=== PATIENT | male | born 1965 | race African-American/Black ===

== ENCOUNTER 2016-06-26 17:09 | Inpatient (IN) ==
[2016-06-26] MEDS ORDERED: NITROGLYCERIN 2% OINT 1 INCH/GM PACK TOP STA (18:52)
[2016-06-26] MEDS ORDERED: ENOXAPARIN 100 MG/ML SYRINGE SUBCUT STA (18:52)
[2016-06-26] MEDS ORDERED: ASPIRIN 325 MG TABLET PO STA (18:52)
[2016-06-26 19:03] LABS: Basophils # 0.1 10*3/uL (0.0-0.2); Basophils % 0.9 % (0.0-0.8); Eosinophils # 0.2 10*3/uL (0.0-0.87); Eosinophils % 1.3 % (0.00-10.9); Hematocrit 42.2 VOL% (42.0-52.0); Hemoglobin 14.2 GM/DL (14.0-18.0); Immature Granulocytes % 0.4 %; Immature Granulocytes Absolute 0.04 #; Lymphocytes # 4.5 10*3/uL (1.4-4.0); Lymphocytes % 39.4 % (21.2-54.2); Mean Corpuscular HGB Conc 33.6 GM/DL (32-36); Mean Corpuscular Hemoglobin 30 PG (27-34); Mean Corpuscular Volume 89.4 FL (87-102); Monocytes # 0.7 10*3/uL (0.11-0.8); Monocytes % 6.2 % (1.7-12.7); Neutrophils # 5.9 10*3/uL (1.4-7.4); Neutrophils % 51.8 % (38.7-73.9); Platelet Count 205 T/CUMM (130-400); Red Blood Count 4.72 MC/CUMM (3.8-5.5); Red Cell Distribution Width 12.5 % (9.3-17.3); White Blood Count 11.4 T/CUMM (4-12)
--- NOTE | 2016-06-26 19:05 | XRay Report ---
Portable chest Date: 06/26/2016 Clinical history: Chest pain Comparison: 02/17/2008 Technique: Portable AP sitting chest Findings: The heart is normal in size. The lungs are clear. Unremarkable mediastinum. Minimal degenerative changes. Impression: No acute cardiopulmonary pathology identified. PROCEDURE INTERPRETED AT [facility] DEPARTMENT OF RADIOLOGY Final Report Signed by: Dr. Yelena Ch
[2016-06-26] MEDS ORDERED: ASPIRIN 325 MG TABLET ONE (19:12)
[2016-06-26] MEDS ORDERED: NITROGLYCERIN 2% OINT 1 INCH/GM PACK TOP ONE (19:12)
[2016-06-26] MEDS ORDERED: ENOXAPARIN 120 MG/0.8 ML SYRINGE SUBCUT ONE (19:12)
[2016-06-26 19:14] LABS: PT Patient Result 10.6 SECS; Partial Thromboplastin Time 23.8 SECS (0-40)
[2016-06-26 19:31] LABS: Alanine Aminotransferase 37 U/L (16-61); Albumin 3.9 G/DL (3.4-5.0); Alkaline Phosphatase 95 U/L (45-117); Aspartate Amino Transferase 22 U/L (0-37); Bilirubin,Total < 0.39 MG/DL (0.2-1.0); Blood Urea Nitrogen 19 MG/DL (7-18); Calcium 8.9 MG/DL (8.5-10.1); Glucose 124 MG/DL (74-106); Magnesium 2.3 MG/DL (1.8-2.4); Osmolality,Calculated 285.1 MOS/KG (273-304); Potassium 3.8 MMOL/L (3.5-5.1); Sodium 142 MMOL/L (136-145); Total Protein 7.2 G/DL (6.4-8.3)
[2016-06-26] MEDS ORDERED: CLORAZEPATE 3.75 MG TABLET PO PRN (21:57)
--- NOTE | 2016-06-26 22:03 | Hospitalist History & Physical ---
Assessment and Plan (1) Chest pain Status: Acute Assessment and plan: This patient's chest pain have increased in frequency and starting and provoked. Because of these I am concerned that this is more likely crescendo angina from coronary ischemia. Patient should be seen by cardiology while here. He is going to be admitted to the CCU. He has had a dose of Lovenox 110 mg subcu daily. In this context I prefer unfractionated heparin just on outside chance our cardiology colleagues would need to do catheterization fast. In this case heparin should be withheld until tomorrow morning 12 hours after the first dose of Lovenox. PT/ PTT on discharge. Continue antiplatelet treatment that he was getting at home medications have been resumed. Current Visit: Yes (2) Bradycardia Status: Acute Assessment and plan: This could be secondary to ischemia could also be secondary to medications. She should be observed closely on telemetry. She is going to CCU Chart has been reviewed in total. Prior encounters also been looked at. Patient will be seen by cardiology in the morning. Time for patient assessment chart review and decision-making was 45 minutes. This patient is being admitted to Dr. Smalls Current Visit: Yes History of Present Illness Chief complaint: Recurrent chest pains over the past 24 hrs radiation to the left shoulder. History of present illness: Mr. Hayes is a 51 year old male with known history of coronary artery disease and history of myocardial infarction in the last 2 years. Patient reports that since last night started having recurrent chest pain pressure with radiation to the left shoulder and left upper arm. He has had 4 events since last night. Patient is well-known to the cardiology services of these hospital. Whenever the chest pains hit him his short winded. Also has developed exercise intolerance of late. Gentleman has 4 stents already. This is obviously a crescendo his chest pain character. Home Medications Medication Instructions Recorded Confirmed Type Allopurinol 100 mg PO DAILY 06/26/16 06/26/16 History Aspirin [Aspirin EC] 81 mg PO DAILY 06/26/16 06/26/16 History Atorvastatin [Lipitor] 40 mg PO DAILY 06/26/16 06/26/16 History Clorazepate Dipotassium 3.75 mg PO TID PRN 06/26/16 06/26/16 History Losartan Potassium 100 mg PO DAILY 06/26/16 06/26/16 History Metoprolol Tartrate Tab [Lopressor 25 mg PO TID 06/26/16 06/26/16 History Tab] Ticagrelor [Brilinta] 90 mg PO BID 06/26/16 06/26/16 History Allergies Allergy/AdvReac Type Severity Reaction Status Date / Time No Known Allergies Allergy Unverified 07/10/14 10:47 Medical,Surgical,& Family Hx - Medical History Cardio: History of: Hypertension, [place], Cardiovascular Problems (stents in august 2014) Psychological: History of: Anxiety Disorders Endocrine: History of: Dyslipidemia - Social History Smoking Status: Never smoker - Constitutional Constitutional: Present: as per HPI - EENT Eyes: Present: other (Unremarkable) Ears: Present: other (No symptoms and signs) - Cardiovascular Cardiovascular: Present: chest pain at rest, dyspnea on exertion, other ( Dyspnea with chest pain) - Respiratory Respiratory: Present: other (Shortness of breath with exertion) - Gastrointestinal Gastrointestinal: Present: other (No symptoms or sign) - Genitourinary Genitourinary: Present: other (No symptoms and signs) - Musculoskeletal Musculoskeletal: Present: other (No symptoms and signs) - Neurological Neurological: Present: other (No symptoms and signs) - Endocrine Endocrine: Present: other Exam - Constitutional Vitals: Period Temp Pulse Resp BP Sys/Ivy Pulse Ox Last 24 Hr 98.1 F-98.1 F 54-59 18-18 171-184/81-101 97-99 General appearance: over weight - Head Head exam: Present: normocephalic, atraumatic - Eye Eye exam: Present: EOMI Pupils: Present: JULIO - ENT ENT exam: Present: normal oropharynx - Neck Neck exam: Present: normal inspection - Respiratory Respiratory exam: Present: clear to auscultation bilaterally, other (No rales no wheezing) - Cardiovascular Cardiovascular exam: Present: bradycardia, other (Sinus control) - GI/Abdominal GI/Abdominal exam: Present: normal bowel sounds, soft, other (No guarding no rebound tenderness) - Extremities Exam Extremities exam: Present: normal inspection, full ROM, other (No edema no cyanosis) - Back Exam Back exam: Present: normal inspection - Neurological Exam Neurological exam: Present: alert, oriented X3, CN II-XII intact - Psychiatric Psychiatric exam: Present: normal affect, normal mood - Skin Skin exam: Present: normal color, warm, dry Results - Labs CBC & BMP: 06/26/16 18:40 06/26/16 18:40 Lab Results: I have reviewed the past 24 hour labs (His troponin was less than 0.015. Troponins will be drawn. Patient did receive Lovenox full dose in the emergency room PT PTT are within normal limits)
[2016-06-26 23:32] LABS: Risk Ratio 5.45; VLDL CHOLESTEROL 108.4 MG/DL
[2016-06-26] MEDS ORDERED: LOSARTAN 50 MG TABLET PO ONE (23:38)
[2016-06-26 23:39] LABS: Troponin I Only < 0.015 NG/ML (0.00-0.045)
[2016-06-26] MEDS: NITROGLYCERIN 2% OINT 1 INCH/GM PACK TOP SCH (23:47)
[2016-06-26 23:48] LABS: Apearance,Urine CLEAR (Clear); Bilirubin,Urine Negative (Negative); Blood, Urine Negative (Negative); Glucose,Urine (UA) Negative (Negative); Ketones,Urine Negative (Negative); Mucus,Urine Occasional /LPF (Occasional); Nitrite,Urine Negative (Negative); Protein,Urine Negative; RBC,Urine 3 /HPF (0-4); Squamous Epithelial Cell,Urine Occasional /HPF (0-10); Urine Color Yellow (Yellow); WBC,Urine <1 /HPF (0-6)
[2016-06-26] MEDS: hydrALAZINE 20 MG/1 ML VIAL IV PRN (23:52)
--- NOTE | 2016-06-26 23:52 | Emergency Department Note ---
Willy Bales Brittany, am scribing for, and in the presence of, Aj Hardy MD 18:58. Hayley Bales William S., MD, personally performed the services described in this documentation, ascribed by Jane Aguilera in my presence, and it is both accurate and complete [id number] . Arrival - Arrival Chief Complaint: Chest Pain Stated Complaint: CHEST PAIN ARM PAIN DIZZY ED Nursing Triage Note: chest tightness radiating down left arm with dizziness that started yesterday. Mode of Arrival: Ambulatory Limitations: No Limitations Source: Patient, Family (rday) Time Seen by Provider: 06/26/16 18:27 - History of Present Illness HPI Narrative: This is a 51 y/o black male,who presents to the ED for further evaulation of CP which started last night. He reports he had 3-4 episodes of chest pain last night. He states the chest pain was a dull type of pain and did not radiate. He reports the chest pain went away on its own. Pt states the chest pain then started again this morning. He reports he is SOB with the chest pain. He reports the SOB is worse with exertion. Pt also reports dizziness. Pt has no other complaints/pain in the ED at this time. Pt has a PMHx of HTN, DE, and dyslipidemia. Pt has had a cardiac cath with 4 stents. Pt has a family medical Hx of HTN and heart disease. Pt is a former smoker. Onset (ago): day(s) (S) Consistency: constant Severity: moderate Allergies/Adverse Reactions: Allergies Allergy/AdvReac Type Severity Reaction Status Date / Time No Known Allergies Allergy Unverified 07/10/14 10:47 Home Medications: Home Medications Medication Instructions Recorded Confirmed Type Allopurinol 100 mg PO DAILY 06/26/16 06/26/16 History Aspirin [Aspirin EC] 81 mg PO DAILY 06/26/16 06/26/16 History Atorvastatin [Lipitor] 40 mg PO DAILY 06/26/16 06/26/16 History Clorazepate Dipotassium 3.75 mg PO TID PRN 06/26/16 06/26/16 History Losartan Potassium 100 mg PO DAILY 06/26/16 06/26/16 History Metoprolol Tartrate Tab [Lopressor 25 mg PO TID 06/26/16 06/26/16 History Tab] Ticagrelor [Brilinta] 90 mg PO BID 06/26/16 06/26/16 History Review of System - Review of System 12 point system: reviewed and no additional remarkable complaints except as stated - Review of System Cardiovascular: Present: chest pain, dyspnea on exertion, other (Dyspnea) Gastrointestinal: Absent: abdominal pain Neurological: Present: vertigo (Dizziness) Medical,Surgical,& Family Hx - Medical History Cardio: History of: Hypertension, DE, Cardiovascular Problems (stents in august 2014) Psychological: History of: Anxiety Disorders Endocrine: History of: Dyslipidemia - Surgical History Cardiac Surgeries: Sugical HX of: Cardiac Catheterization (with 4 stents) - Family History Family History: Reports;: Family Diabetes, Family Heart Disease - Social History Smoking Status: Former smoker Exam Vital Signs: Vital Signs Temperature 98.6 F 06/26/16 23:10 Pulse Rate 50 L 06/26/16 23:50 Respiratory Rate 20 06/26/16 23:50 Blood Pressure 150/75 06/26/16 23:50 O2 Sat by Pulse Oximetry 97 06/26/16 23:50 - General General appearance: alert, in no apparent distress, obese (Slightly overweight) - Head Head exam: Present: atraumatic, normocephalic, normal inspection - Eye Eye exam: Present: normal appearance, PERRL, EOMI. Absent: nystagmus, miosis, mydriasis - ENT ENT exam: Present: normal exam, normal oropharynx, mucous membranes moist - Neck Neck exam: Present: normal inspection, full ROM, trachea midline. Absent: tenderness, lymphadenopathy, thyromegaly - Chest Chest inspection: Present: normal inspection, symmetric chest wall rise. Absent : tenderness, rash, abscess - Respiratory Respiratory exam: Present: normal lung sounds bilaterally. Absent: rales, respiratory distress, rhonchi, stridor, wheezes - Cardiovascular Cardiovascular exam: Present: regular rate, normal rhythm, normal heart sounds. Absent: murmur, rubs, gallop, clicks - Abdominal Exam Abdominal exam: Present: soft, normal bowel sounds. Absent: distention, tenderness, guarding, rebound, rigidity - Rectal Exam Rectal exam: Present: deferred - Extremities Exam Extremities exam: Present: normal inspection, full ROM, normal capillary refill. Absent: tenderness, pedal edema, joint swelling, calf tenderness - Back Exam Back exam: Present: normal inspection, full ROM. Absent: tenderness, muscle spasm, rashes - Neurological Exam Neurological exam: Present: alert, oriented X3, CN II-XII intact. Absent: motor sensory deficit - Psychiatric Psychiatric exam: Present: normal affect, normal mood. Absent: depressed, agitated, anxious, manic - Skin Skin exam: Present: warm, dry, intact, normal color. Absent: rash, cyanosis, diaphoresis, erythema, pallor, mottled Course - Reevaluation(s) Reevaluation #1: Patient remains pain-free at this time. Given patient's prior event with silent DE in the patient's symptoms that he presents today the patient will be admitted for rule out myocardial infarction with appropriate stress testing as per his primary care doctor's evaluation. Patient's labs are negative this time EKG shows normal sinus rhythm his chest x-ray is unremarkable. Patient is admitted to the telemetry service. Results - Labs CBC & BMP: 06/26/16 18:40 06/26/16 18:40 - Diagnostic Findings Procedure: Chest x-ray: report reviewed by me (Nothing acute. ) Disposition Clinical Impression: Unstable angina pectoris Case discussed with: patient, patient's family Disposition: Still a Patient Condition: Stable
[2016-06-27 05:52] LABS: Risk Ratio 5.63; VLDL CHOLESTEROL 46.8 MG/DL
[2016-06-27] MEDS: NITROGLYCERIN 2% OINT 1 INCH/GM PACK TOP SCH ×3 (06:09→18:06)
--- NOTE | 2016-06-27 06:39 | EKG Report ---
Stationary ECG Study [facility] ER Test Date: 06/26/2016 5:33:11 PM Pat Name: ALLEN ALLISON Department: Room: 114 Gender: M Staffing Director: : 1965 Requested by: Aj Palacio Order Number: [id number] Nadira MD: DEBRA GONZALEZ Intervals [place] Rate: 55 P: 64 [place]: 179 QRS: 35 QRSD: 83 T: 65 QT: 419 QTc: 407 Interpretive Statements SINUS BRADYCARDIA SEPTAL INFARCT, AGE UNDETERMINED Electronically Signed On 06-29-16 12:34:19 CDT by DEBRA GONZALEZ [email or web address]
--- NOTE | 2016-06-27 07:32 | EKG Report ---
Stationary ECG Study [facility] Test Date: 06/27/2016 7:31:44 AM Pat Name: ALLEN ALLISON Department: Room: 114 Gender: M Health Specialist: THAD : 1965 Requested by: Brody De La Paz Order Number: [id number] Reading MD: DEBRA GONZALEZ Intervals [place] Rate: 56 P: 50 [place]: 155 QRS: 53 QRSD: 89 T: 4 QT: 464 QTc: 455 Interpretive Statements SINUS RHYTHM SEPTAL MYOCARDIAL INFARCTION, OF INDETERMINATE AGE Electronically Signed On 06-29-16 12:40:12 CDT by DEBRA GONZALEZ [email or web address]
--- NOTE | 2016-06-27 08:50 | Cardiology Consult Note ---
<Delilah Baker E - Last Filed: 06/27/16 08:39> Assessment and Plan - Time spent with patient Time spent with patient: Greater than 30 minutes (1) Dizziness Status: Acute Assessment and plan: See plan of care listed below Current Visit: Yes (2) CAD (coronary artery disease) Status: Chronic Assessment and plan: See plan of care listed below Current Visit: Yes (3) Hypertension Status: Chronic Assessment and plan: See plan of care listed below Current Visit: Yes (4) Dyslipidemia Status: Chronic Assessment and plan: See plan of care listed below Current Visit: Yes (5) Left carotid bruit Status: Acute Assessment and plan: See plan of care listed below Current Visit: Yes (6) Bradycardia Status: Acute Assessment and plan: See plan of care listed below Current Visit: Yes (7) Chest pain Status: Resolved Assessment and plan: See plan of care listed below Current Visit: Yes History of Present Illness - Data of Consult Patient: known to practice within the last 3 years Consult date: 06/27/16 Requesting Physician: Brody De La Paz - Consult Narrative Reason for consult: chest pain, dizziness History of present illness: 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 AMOR PCP: Patient is being seen in the CCU. Mr. Hayes is a 51 year old male routinely followed by Dr. moses. He was last seen in cardiology clinic April 06, 2016. He has a history of known coronary artery disease (status post non-Q-wave inferior infarction August 2014 requiring 4 stents placed to the right coronary artery [facility]. At that time the LAD and circumflex had mild diffuse disease with an occluded small first diagonal branch and an ejection fraction 45%. History of hypertension, dyslipidemia, tobaccoism. Patient presented to the emergency department at [facility] last evening after experiencing dizziness. Monday morning, while in episcopal, he began to feel "swimmy headed". This lasted only a brief moment. Monday evening, he began to feel this again. At that point he remembered he had chest discomfort in the mid chest area on Monday which lasted approximately 3 seconds. He described it as a squeezing sensation without radiation, nausea or vomiting. He was sitting when this occurred. He can identify no aggravating nor any alleviating factors. It has not reoccurred and does not recur with exertion or activity. Later that evening he had left shoulder pain with movement, described as painful. He has been stuffy through the sinus area and finds it difficult to breathe through his nose recently. Patient's , Charlotte, is present and gives additional information. It is reported he had a stress test in December 2015 from which she received favorable results. I cannot locate this test at this time Patient's cardiac biomarkers are negative. His EKG is unremarkable. His heart rate is noted to be in the low 50s which could be contributing to his dizziness or lightheadedness. He is on metoprolol tartrate 25 mg p.o. 3 times daily. Will transition this to twice daily dosing and monitor his blood pressure and heart rate accordingly. We discussed with Dr. Kasper this morning. Conceivably, patient could be scheduled for an outpatient stress test at cardiovascular [facility]. Will defer to Dr. Kasper for further recommendations. At this time, I will decrease his beta-blockade to twice daily dosing. ASSESSMENT/PLAN: 1. CHEST PAIN -atypical for angina. Will await Dr. Kasper recommendations. Verify that he is taking PPI. 2. KNOWN CAD -taking Brilinta. I will decrease his aspirin to 81 mg daily 3. HYPERTENSION -adequately controlled. Adjusting beta-blockade to lower dose. There is a question of history of angioedema per an old record. He has been taking losartan at home without difficulty. 4. DYSLIPIDEMIA -increase Lipitor as his LDL is 114. 5. DIZZINESS -dizziness could conceivably be related to lower heart rates. We will decrease his beta blockade and monitor accordingly 6. REMOTE TOBACCOISM -has not smoked in quite some time. Reinforced the merits of tobacco 7. LEFT CAROTID BRUIT - carotid us CC: Raina Smalls MD - Home Medications and Allergies Home Medications: Home Medications Medication Instructions Recorded Confirmed Type Allopurinol 100 mg PO DAILY 06/26/16 06/26/16 History Aspirin [Aspirin EC] 81 mg PO DAILY 06/26/16 06/26/16 History Atorvastatin [Lipitor] 40 mg PO DAILY 06/26/16 06/26/16 History Clorazepate Dipotassium 3.75 mg PO TID PRN 06/26/16 06/26/16 History Losartan Potassium 100 mg PO DAILY 06/26/16 06/26/16 History Metoprolol Tartrate Tab [Lopressor 25 mg PO TID 06/26/16 06/26/16 History Tab] Ticagrelor [Brilinta] 90 mg PO BID 06/26/16 06/26/16 History Allergies/Adverse Reactions: Allergies Allergy/AdvReac Type Severity Reaction Status Date / Time No Known Allergies Allergy Unverified 07/10/14 10:47 Review of systems: REVIEW OF SYSTEMS: - Constitutional Constitutional: Dizziness yesterday. Denies absent: syncope, anorexia, night sweats - EENT Eyes: Absent: blurry vision, loss of vision, diplopia Ears: Absent: decreased hearing, ear pain, ear discharge - Cardiovascular Cardiovascular: Present: chest pain brief, at rest. Denies chest pain with exertion. Denies dyspnea on exertion but does have difficulty moving air through his nose. - Respiratory Respiratory: Denies BLACKMAN, cough. Absent: wheezing, hemoptysis, change in phlegm color - Gastrointestinal Gastrointestinal: Denies constipation. Absent: abdominal pain, hematemesis, hematochezia, melena, change in bowel habits, nausea - Genitourinary Genitourinary: Absent: difficulty urinating, dysuria, urinary hesitancy, flank pain - Musculoskeletal Musculoskeletal: Present: back pain Absent: joint swelling, muscle cramps, muscle weakness - Neurological Neurological: Present: normal gait without frequent falls. Absent: dizziness, hemiparesis - Psychiatric Psychiatric: Absent: anxiety, depression, difficulty concentrating - Endocrine Endocrine: Denies absent: cold intolerance, heat intolerance, polyuria, polyphagia, polydipsia - Hematologic/Lymphatic Hematologic/Lymphatic: Present: easy bruising. Absent: easy bleeding, easy bruisability -Integumentary Integumentary: Absent: lesions, rashes, skin breakdown Medical,Surgical,& Family Hx - Medical History Cardio: History of: CAD, Hypertension, LA, Cardiovascular Problems (stents in august 2014) Psychological: History of: Anxiety Disorders Endocrine: History of: Dyslipidemia - Surgical History Cardiac Surgeries: Sugical HX of: Cardiac Catheterization (with 4 stents) - Family History Family History: Reports;: Family Diabetes, Family Heart Disease - Social History Smoking Status: Former smoker Have you smoked in the last 12 months: No Frequency of Alcohol Use: None Type of Drug Use: None Marital Status: Lives With:: Alone Functional capacity: independent ambulation Physical Examination Vital Signs Temp Pulse Resp BP Pulse Ox 98.1 F 59 L 18 171/81 97 06/26/16 17:30 04/16/17 17:30 06/26/16 17:30 06/26/16 17:30 06/26/16 17:30 General: [Appears well with no apparent distress.] [Pleasant and cooperative. ] [Appears comfortable.] HEENT: [PERRL, normocephalic, atraumatic. Mucous membranes moist. No jaundice noted. Conjunctiva moist and clear, sclerae anicteric] Neck: No JVD/HJR, no thyromegaly or lymphadenopathy noted. Right carotid bruit Cardiac: [Regular rate and rhythm.] [Soft II/ holosystolic murmur heard best at fifth intercostal space to the left. ] Lungs: [Clear to auscultation without accessory muscle use to assist the respiratory pattern.] Not requiring oxygen Abdomen: Soft, bowel sounds normoactive. Nontender and nondistended. No abdominal bruit or thrill noted. No masses noted. Musculoskeletal: No fluid collection. Decreased range of motion is noted. Extremities: No clubbing, cyanosis noted. [ No edema noted.] Upper extremity pulses 2+. Lower extremity pulses 2+. Capillary refill less than 3 seconds. Skin: No unusual lesions or rashes. No skin breakdown appreciated. Neuro: Awake, alert and oriented 3. Moves all extremities well without hemiparesis or paralysis. No essential tremor is appreciated. Result/EKG - Labs CBC & BMP: 06/26/16 18:40 06/26/16 18:40 Lab Results: I have reviewed the past 24 hour labs Labs: Laboratory Results - last 24 hr 06/26/16 06/26/16 06/26/16 22:50 22:50 23:31 Total Creatine Kinase 330 H CK-MB (CK-2) 2.1 Troponin I < 0.015 Triglycerides 542 H Cholesterol 158 LDL Cholesterol 104.0 VLDL Cholesterol 108.4 HDL Cholesterol 29 L Heart Disease Risk Ratio 5.45 Urine Color Yellow Urine Appearance Clear Urine pH 5.0 Ur Specific [place] 1.030 Urine Protein Negative Urine Glucose (UA) Negative Urine Ketones Negative Urine Blood Negative Urine Nitrate Negative Urine Bilirubin Negative Urine Urobilinogen 4.0 H Urine Leukocytes Negative Urine RBC 3 Urine WBC <1 Ur Squamous Epith Cells Occasional Urine Mucus Occasional Ur Culture Indicated? Not indicated 06/27/16 04:52 Total Creatine Kinase CK-MB (CK-2) Troponin I Triglycerides 234 H Cholesterol 180 LDL Cholesterol 114.0 VLDL Cholesterol 46.8 HDL Cholesterol 32 L Heart Disease Risk Ratio 5.63 Urine Color Urine Appearance Urine pH Ur Specific [place] Urine Protein Urine Glucose (UA) Urine Ketones Urine Blood Urine Nitrate Urine Bilirubin Urine Urobilinogen Urine Leukocytes Urine RBC Urine WBC Ur Squamous Epith Cells Urine Mucus Ur Culture Indicated? - Diagnostic Findings Procedure: Chest x-ray: report reviewed by me - EKG EKG results: interpreted by me EKG shows: bradycardia, sinus rhythm <Rafael Kasper Larry - Last Filed: 06/27/16 09:11> History of Present Illness - Consult Narrative History of present illness: Mr. Hayes is a 51 year old male he's had prior coronary disease and stenting of the RCA approximately 2 years ago i.e. August 2014. I reviewed this patient's chart and person interviewed him and anterior examination. Have discussed this with Delilah Baker NP. Because of this patient's prior issues having very atypical presentation with a non-ST segment elevation myocardial she previously in the fact of he's having left arm discomfort and chest discomfort and even bradycardia could indicate progressive disease with coronary arteries especially his RCA. Certainly his bradycardia could be associated with beta tolu and his heart rates are in the 50s. His cardiac enzymes unremarkable. His ECG is without acute changes but does have an old septal myocardial infarction. Because of his history and prior atypical presentation with non-ST 7 elevation myocardial infarction I think he should have cardiac catheterization to clear his coronary arteries especially as active as he is. I'll discuss this procedure with the patient the medication procedure Belle be carried out as well as the risk. I discussed cardiac catheterization and percutaneous coronary intervention with the patient and available family. I reviewed with them the indications for the procedure and the basis of how the procedure would be carried out. I also reviewed with them the risk of the procedure which include but not necessarily limited to access site bleeding, bruising, pain, swelling or vascular injury that may require emergency vascular surgery, blood transfusion, or thrombin injection. Also discussed the possibility of stroke, myocardial infarction, arrhythmia which may require electrocardioversion, and the possibility of dye reaction that would require medical therapy. Also discussed the possibility of coronary artery injury, ruptured, closure or perforation that may require emergency bypass surgery. We also discussed the possibility of from a major complication. They voice understanding and agree to proceed. I will discuss his case with Dr. Fletcher. CC: Raina Smalls MD Physical Examination Vital Signs Temp Pulse Resp BP Pulse Ox 98.1 F 59 L 18 171/81 97 06/26/16 17:30 06/26/16 17:30 06/26/16 17:30 06/26/16 17:30 06/26/16 17:30 Result/EKG - Labs CBC & BMP: 06/26/16 18:40 06/26/16 18:40 Labs: Laboratory Results - last 24 hr 06/26/16 06/26/16 06/26/16 22:50 22:50 23:31 Total Creatine Kinase 330 H CK-MB (CK-2) 2.1 Troponin I < 0.015 Triglycerides 542 H Cholesterol 158 LDL Cholesterol 104.0 VLDL Cholesterol 108.4 HDL Cholesterol 29 L Heart Disease Risk Ratio 5.45 Urine Color Yellow Urine Appearance Clear Urine pH 5.0 Ur Specific [place] 1.030 Urine Protein Negative Urine Glucose (UA) Negative Urine Ketones Negative Urine Blood Negative Urine Nitrate Negative Urine Bilirubin Negative Urine Urobilinogen 4.0 H Urine Leukocytes Negative Urine RBC 3 Urine WBC <1 Ur Squamous Epith Cells Occasional Urine Mucus Occasional Ur Culture Indicated? Not indicated 06/27/16 04:52 Total Creatine Kinase CK-MB (CK-2) Troponin I Triglycerides 234 H Cholesterol 180 LDL Cholesterol 114.0 VLDL Cholesterol 46.8 HDL Cholesterol 32 L Heart Disease Risk Ratio 5.63 Urine Color Urine Appearance Urine pH Ur Specific [place] Urine Protein Urine Glucose (UA) Urine Ketones Urine Blood Urine Nitrate Urine Bilirubin Urine Urobilinogen Urine Leukocytes Urine RBC Urine WBC Ur Squamous Epith Cells Urine Mucus Ur Culture Indicated?
[2016-06-27] MEDS ORDERED: METOPROLOL TARTRATE 25 MG TABLET PO SCH (09:00)
[2016-06-27] MEDS ORDERED: ATORVASTATIN 40 MG TABLET PO SCH ×2 (09:00→21:00)
[2016-06-27] MEDS ORDERED: ASPIRIN EC 325 MG TABLET PO SCH (09:00)
[2016-06-27] MEDS ORDERED: diphenhydrAMINE CAP 25 MG CAPSULE PO ONE (09:12)
[2016-06-27] MEDS ORDERED: MAGNESIUM SULF RIDER 2 GM in PREMIX 1 EACH IV PRN (09:12)
[2016-06-27] MEDS ORDERED: POTASSIUM CHLORIDE RIDER 10 MEQ in PREMIX 1 EACH IV PRN (09:12)
[2016-06-27] MEDS ORDERED: DIAZEPAM 5 MG TABLET PO ONE (09:12)
[2016-06-27] MEDS: SODIUM CHLORIDE 0.9% 1,000 ML IV SCH ×2 (10:00→16:45)
[2016-06-27] MEDS: TICAGRELOR 90 MG TABLET PO SCH ×2 (10:02→21:17)
[2016-06-27] MEDS: PANTOPRAZOLE 20 MG TABLET PO SCH (10:02)
[2016-06-27] MEDS: LOSARTAN 50 MG TABLET PO SCH (10:02)
[2016-06-27] MEDS: ASPIRIN EC 81 MG TABLET PO SCH (10:02)
[2016-06-27] MEDS: ALLOPURINOL 100 MG TABLET PO SCH (10:07)
--- NOTE | 2016-06-27 11:47 | Ultrasound Report ---
Carotid artery ultrasound Indication: Left-sided carotid bruit Comparison: None available Color Doppler flow and spectral analysis was performed. Findings: Small amount of atherosclerotic plaque is present in both proximal internal carotid arteries. The peak systolic velocity in the right is 59 cm/s . Ratio of flow is 0.6. The peak systolic velocity in the left is 83 cm/s . Ratio of flow is 0.49 Bilateral antegrade vertebral flow is seen. Impression: No evidence of hemodynamically significant stenosis is seen, 0-49% estimated stenosis. Consensus conference on the carotid ultrasound criteria used. Ultrasound images were captured and stored. PROCEDURE INTERPRETED AT [facility] DEPARTMENT OF RADIOLOGY Final Report Signed by: Dr. Ole Martinez
[2016-06-27] MEDS ORDERED: LIDOCAINE 1% 20 ML VIAL ONE (11:59)
[2016-06-27] MEDS ORDERED: HYDROmorphone 2 MG/1 ML VIAL ONE (12:13)
[2016-06-27] MEDS ORDERED: MIDAZOLAM 2 MG/2 ML VIAL ONE (12:13)
--- NOTE | 2016-06-27 12:18 | Hospitalist Progress Note ---
Assessment and Plan (1) Unstable angina pectoris Status: Acute Assessment and plan: 1) USA- to heart cath today. 2)HTN, hypercholesterolemia- continue meds. 3)bradycardia- cards to adjust betablocker. 4)transfer to floor after cath if appropriate. Current Visit: Yes (2) Bradycardia Status: Acute Current Visit: Yes (3) CAD (coronary artery disease) Status: Chronic Current Visit: Yes (4) Hypertension Status: Chronic Current Visit: Yes (5) Dyslipidemia Status: Chronic Current Visit: Yes (6) Left carotid bruit Status: Acute Current Visit: Yes Hospitalist: Subjective Interval history: Mr Hayes feeling good this morning.He has not had chest painsince admission. His troponins are WNL. He had 4 stents placed 2 years ago and thinks his last stress test was in December [address] Denney and did not lead to further workup. Cardiology will see him today. His heart rate has been in the 50s. Exam - Constitutional Vitals: Period Temp Pulse Resp BP Sys/Ivy Pulse Ox Last 24 Hr 98.0 F-98.8 F 48-73 13-20 112-198/51-84 97-100 General appearance: normal weight, no acute distress - Head Head exam: Present: normocephalic, atraumatic - Eye Eye exam: Present: EOMI. Absent: scleral icterus - Respiratory Respiratory exam: Present: clear to auscultation bilaterally - Cardiovascular Cardiovascular exam: Present: regular rate and rhythm, other (chest not tender to palpation) - GI/Abdominal GI/Abdominal exam: Present: normal bowel sounds, soft. Absent: tenderness - Extremities Exam Extremities exam: Absent: edema - Neurological Exam Neurological exam: Present: alert, oriented X3 - Skin Skin exam: Present: warm, dry Results - Labs CBC & BMP: 06/26/16 18:40 06/26/16 18:40 Lab Results: I have reviewed the past 24 hour labs
[2016-06-27] MEDS ORDERED: ENOXAPARIN 60 MG/0.6 ML SYRINGE ONE (12:54)
[2016-06-27] MEDS ORDERED: NITROGLYCERIN DRIP 50 MG/250 ML BOTTLE IV ONE (13:08)
[2016-06-27] MEDS ORDERED: TICAGRELOR 90 MG TABLET ONE (13:50)
[2016-06-27] MEDS ORDERED: ONDANSETRON 4 MG/2 ML VIAL IV PRN (13:51)
[2016-06-27] MEDS ORDERED: HYDROmorphone 2 MG/1 ML VIAL IV PRN (13:51)
[2016-06-27] MEDS ORDERED: NITROGLYCERIN SL 0.4 MG TABLET SL PRN (13:51)
--- NOTE | 2016-06-27 14:09 | Cardiac Catheterization ---
Date of Procedure:: 06/27/16 Post-op diagnosis: same Procedure: Procedures performed: 1. Left heart catheterization 2. Coronary angiography 3. Left ventriculography 4. Angioplasty and stenting of distal right coronary chronic total occlusion ( different charge then routine coronary stenting) 5. Right femoral arteriotomy closures with Angio-Seal device Brief clinical summary: The patient has history of stenting of his RCA 4 at [place] August 2014. He has recurrent chest pain., Ruled out for [place]. Description of procedure: After obtaining informed consent, the right groin was prepped and draped in the usual sterile fashion. Next a short 6 [place] sheath was placed in the right femoral artery using a modified Seldinger technique, after the patient received IV sedation and local anesthetic. Next a JL4 catheter was advanced over a guidewire under fluoroscopic guidance, and was engaged to the left coronary artery after which angiography was performed in multiple views. This was then removed over a wire, and a JR4 catheter was advanced in similar fashion was engaged the right coronary artery after which angiography was performed in multiple views. Next a bent pigtail catheter was advanced into the left ventricle, where hemodynamic measurements were obtained, left ventriculography was performed. Percutaneous coronary intervention wasn't performed as described below. After the intervention, and it of that she showed was inserted in the right common femoral artery in a vessel suitable for closure. Hemostasis was obtained with Angio-Seal device with no residual bleeding. He was transferred from the dental laboratory assistant in good condition without complication. Percutaneous coronary intervention: The patient was given 0.6 mg per kilogram of intravenous Lovenox prior to procedure. He was artery on Brilinta given this morning was given an additional 90 mg after procedure. He was artery on aspirin. A hockey-stick 1 guiding cath with sideholes was advancing his right coronary artery provided fair support. Next a PT Graphix wire was advanced to the area distal occlusion with some difficulty. He would not cross on first attempt, but with accelerated advancement I was able to cross the occlusion and advanced fairly easily after the point tender the PDA takeoff. I then advanced a 2.0 x 20 balloon across here previous occlusion and dilated at low pressure. Angiogram showed that it was in the true vessel but there was still critical disease after angioplasty was subtotally occluded distally. However I can see the PDA and posterolateral filling by antegrade flow. I tried to advance the balloon again and lost wire position as the guide backed out. The balloon and wire were removed from the body. I then advanced a 1.5 x 12 [id number] balloon with a long [place] wire. With some difficulty arousability advance this eventually into the PDA. I performed multiple inflations in the proximal PDA as well as the distal posterolateral. Flow had been lost temporarily but it reopened after giving multiple nitroglycerin intracoronary injections. The balloon was removed, and a 2.25 x 38 drilling stent was advanced covering the entire distal RCA just proximal to the PDA takeoff. It was deployed at just under nominal pressures at approximately 2.15 mm. There was a good result but there was a subtotal occlusion before the takeoff of the PDA and posterolateral. At that point the posterolateral fill by CHAGO 2 flow, the PDA by CHAGO 3 flow but with critical stenosis. I removed the stent balloon advance the 1.5 balloon into the PDA and performed a high pressure prolonged inflation. I then pulled back. There was an unsatisfactory result. Therefore I removed the balloon and advanced a 2.0 x 12 mini vision stent crossing into the proximal PDA abutting the hold ostial posterior lateral stent. It was dilated to modestly above nominal pressure with the next a result. The balloon was removed and a 2.5 x 25 balloon was advanced in the proximal portion of the stent of the distal RCA there was dilated to rated burst pressure with very good result. The patient on she will without complication. The patient was transferred from the dental laboratory assistant in good condition. Coronary angiography: The left main coronary artery is normally developed and free of disease. The left anterior descending artery is of average caliber and has diffuse mild disease of less than 30% in the proximal midportion, with a discrete 50-60% very distal stenosis. There is a very short "nub" of the previously noted ostial diagonal occlusion was noted. The circumflex gives off a long relatively thin OM1 branch with diffuse 70-80% disease. It is at most 1.50 mm proximal. There is a large OM 2 branch with less than 30% proximal disease. The right coronary artery has patent ostial stent and mid stent, and a posterior lateral stent can be seen filling by [id number] collaterals as is the distal vasculature. The RCA is occluded distally in the [place] circulation, approximate 1-1.5 centimeters past the mid stent. Left ventriculography: Left ventricle is normal to hyperdynamic but there is a discrete area of akinesis at the anterolateral wall. The estimated overall ejection fraction is 65%. Impression: 1. Normal overall LV systolic function with ejection fraction assessment be 65 % with discrete area of anterolateral akinesis home (likely related to old diagonal occlusion) 2. Right dominant system 3. Coronary artery disease as described above including but not limited to: A. Mild less than 30% proximally disease with discrete 50% very distal stenosis B. Diffusely diseased thin, long OM1 branch as detailed above C. Patent proximal and mid RCA stents with distal RCA occlusion and filling of the PDA and posterior lateral by [id number]-[id number] collaterals 4. Status post open and stenting of distal RCA chronic total occlusion with 2.25 x 38 drug-eluting stent (synergy), and follow-up overlap stenting of the distal RCA to proximal PDA with 2.0 x 12 bare metal, mini vision stent with excellent result after post-dilating proximal Synergy stent with 2.5 x 25 balloon. Recommendation discussion: I believe that she did very good result stenting the patient's distal RCA chronic total occlusion. I "jailed" the ostial right posterior lateral where an old stent was noted. This remained opened although there is a tight stenosis here. I suspect this will remain open, we will close in the provided flow through the [id number] collaterals which are noted. He'll continue on baby aspirin Brilinta as previously. Anesthesia: minimal conscious sedation Surgeon / Physician: Matthew Dick General Dentist/Owner: other Estimated blood loss: minimal Specimens: none sent Condition: stable Disposition: floor - Medications / Follow-up
--- NOTE | 2016-06-27 15:56 | EKG Report ---
Stationary ECG Study [facility] Test Date: 06/27/2016 3:56:21 PM Pat Name: ALLEN ALLISON Department: Room: 114 Gender: M Literary Writer: THAD : 1965 Requested by: Matthew Awad Order Number: [id number] Reading MD: SHANNAN LINDO Intervals [place] Rate: 42 P: 60 NE: 165 QRS: 94 QRSD: 94 T: -1 QT: 522 QTc: 462 Interpretive Statements SINUS BRADYCARDIA at 42 BPM Suggests lateral MO of indeterminate age NST; LVO versus ischemia Electronically Signed On 06-30-16 17:46:30 CDT by SHANNAN LINDO [email or web address]
[2016-06-27 15:57] LABS: Troponin I Only 0.023 NG/ML (0.00-0.045)
[2016-06-27] MEDS: ATORVASTATIN 80 MG TABLET PO SCH (21:18)
[2016-06-27] MEDS: METOPROLOL TARTRATE 25 MG TABLET PO SCH (21:18)
[2016-06-27] MEDS: hydrALAZINE 20 MG/1 ML VIAL IV PRN (21:18)
--- NOTE | 2016-06-27 21:20 | ECHO Report ---
Jean Pierre Hayes Exam Date: 06/27/2016 08:59 Referring Physician: Technologist: Alanna Kohler LRCP Age: 51 Ht (in): 76 Wt (lb): 240 Gender: M Exam Location: [facility] Echo Indications: angina, chest pain, bradycardia BP: 127 / 55 HR: 64 Rhythm: Bradycardia Technical Quality: Fair IMPRESSIONS 1. This is a fair quality study. 2. Left ventricle is normal size systolic function ejection fraction 65% without segmental abnormalities. There is mild to moderate concentric left ventricular hypertrophy with grade 2 diastolic dysfunction. 3. Other cardiac chambers are normal size. 4. Valvular structures are grossly normal. MEASUREMENTS (Male / Female) Normal Values 2D ECHO LV Diastolic Diameter PLAX 4.5 cm 4.2 - 5.9 / 3.9 - 5.3 cm LV Systolic Diameter PLAX 3.4 cm LV Fractional Shortening PLAX 25.7 % IVS Diastolic Thickness 1.8 cm 0.6 - 1.0 / 0.6 - 0.9 cm LVPW Diastolic Thickness 1.3 cm 0.6 - 1.0 / 0.6 - 0.9 cm RV Internal Dim ED PLAX 2.5 cm Aortic Root Diameter 2.5 cm LA Systolic Diameter LX 3.7 cm 3.0 - 4.0 / 2.7 - 3.8 cm FINDINGS Left Ventricle Left ventricle is normal size systolic function with ejection fraction 65%. There are no segmental wall motion abnormalities. There is mild to moderate concentric left ventricular hypertrophy. Grade 2 diastolic dysfunction. Right Ventricle Normal right ventricular size and systolic function. Right Atrium Normal right atrial size. Left Atrium Normal left atrial size. Mitral Valve Mitral valve is anatomically normal with trace regurgitation which is physiologically normal. Aortic Valve Aortic valve not well visualized but appeared be grossly tricuspid structure and anatomically functioning normal. Tricuspid Valve Tricuspid valve is not adequately visualized common on. Pulmonic Valve Morphologically normal pulmonic valve. Pericardium No pericardial effusion. Aorta Normal size aortic root and proximal ascending aorta. Rafael Kasper MD (Electronically Signed) Final Date: 27 June 2016 21:19
[2016-06-27] MEDS ORDERED: LOSARTAN 50 MG TABLET PO ONE (23:33)
[2016-06-28 05:16] LABS: Basophils # 0.1 10*3/uL (0.0-0.2); Basophils % 0.7 % (0.0-0.8); Eosinophils # 0.1 10*3/uL (0.0-0.87); Eosinophils % 1.1 % (0.00-10.9); Hematocrit 40.3 VOL% (42.0-52.0); Hemoglobin 13.9 GM/DL (14.0-18.0); Immature Granulocytes % 0.3 %; Immature Granulocytes Absolute 0.03 #; Lymphocytes % 36.6 % (21.2-54.2); Mean Corpuscular HGB Conc 34.5 GM/DL (32-36); Mean Corpuscular Hemoglobin 30 PG (27-34); Mean Platelet Volume 11.7 FL (9.6-12.0); Monocytes # 0.6 10*3/uL (0.11-0.8); Monocytes % 5.9 % (1.7-12.7); Neutrophils % 55.4 % (38.7-73.9); Platelet Count 219 T/CUMM (130-400); Red Blood Count 4.63 MC/CUMM (3.8-5.5); Red Cell Distribution Width 12.8 % (9.3-17.3); White Blood Count 10.8 T/CUMM (4-12)
[2016-06-28 05:59] LABS: Calcium 8.7 MG/DL (8.5-10.1); Magnesium 2.2 MG/DL (1.8-2.4); Osmolality,Calculated 278.4 MOS/KG (273-304)
[2016-06-28 06:06] LABS: Blood Urea Nitrogen 13 MG/DL (7-18); Calcium 8.6 MG/DL (8.5-10.1); Glucose 115 MG/DL (74-106); Osmolality,Calculated 279.4 MOS/KG (273-304); Sodium 140 MMOL/L (136-145)
[2016-06-28 06:07] LABS: Troponin I Only 0.298 NG/ML (0.00-0.045)
--- NOTE | 2016-06-28 07:52 | Hospitalist Progress Note ---
Assessment and Plan (1) Unstable angina pectoris Status: Acute Assessment and plan: 1)CAD- had 2 stents to RCA yesterday and history of 4 stents 2 years ago. on asa and Brillinta per DR Dick. No chest pain. transfer to tele. Increase activity. 2)HTN, hypercholesterolemia- continue meds and add Norvasc 10 mg daily this morning. 3)bradycardia- on beta tolu. Current Visit: Yes (2) Bradycardia Status: Acute Current Visit: Yes (3) CAD (coronary artery disease) Status: Chronic Current Visit: Yes (4) Hypertension Status: Chronic Current Visit: Yes (5) Dyslipidemia Status: Chronic Current Visit: Yes (6) Left carotid bruit Status: Acute Current Visit: Yes Hospitalist: Subjective Interval history: Mr Hayes has felt well since last night. No chest pain since admission. He tolerated the cath with 2 stents well. However, his heart rate has remained in the 50s, and even 40s when he was sleeping last night. He has been on metoprolol 25mg BID (not TID as listed in home meds) at home. Also his SBP has increased to the 170s. Exam - Constitutional Vitals: Period Temp Pulse Resp BP Sys/Ivy Pulse Ox Last 24 Hr 98.0 F-99.8 F 44-78 12-22 137-186/59-95 97-100 General appearance: no acute distress, over weight - Eye Eye exam: Present: EOMI. Absent: scleral icterus - Respiratory Respiratory exam: Present: clear to auscultation bilaterally - Cardiovascular Cardiovascular exam: Present: regular rate and rhythm - GI/Abdominal GI/Abdominal exam: Present: normal bowel sounds, soft. Absent: tenderness - Extremities Exam Extremities exam: Absent: edema - Neurological Exam Neurological exam: Present: alert, oriented X3 - Skin Skin exam: Present: warm, dry Results - Labs CBC & BMP: 06/28/16 05:08 06/28/16 05:08 Lab Results: I have reviewed the past 24 hour labs Specialty Discharge - Follow Up or Referrals
[2016-06-28] MEDS: PANTOPRAZOLE 20 MG TABLET PO SCH (08:01)
[2016-06-28] MEDS: ASPIRIN EC 81 MG TABLET PO SCH (08:02)
[2016-06-28] MEDS: TICAGRELOR 90 MG TABLET PO SCH ×2 (08:02→20:53)
[2016-06-28] MEDS: LOSARTAN 50 MG TABLET PO SCH (08:02)
[2016-06-28] MEDS: ALLOPURINOL 100 MG TABLET PO SCH (08:04)
[2016-06-28] MEDS: amLODIPine 10 MG TABLET PO SCH (08:06)
--- NOTE | 2016-06-28 08:17 | EKG Report ---
Stationary ECG Study [facility] Test Date: 06/28/2016 8:00:16 AM Pat Name: ALLEN ALLISON Department: Room: 114 Gender: M Turner And Former Automatic: THAD : 1965 Requested by: Brody De La Paz Order Number: [id number] Reading MD: SHANNAN LINDO Intervals [place] Rate: 63 P: 58 MA: 172 QRS: 9 QRSD: 78 T: 81 QT: 401 QTc: 409 Interpretive Statements SINUS RHYTHM at 63 BPM ANTEROSEPTAL MYOCARDIAL INFARCTION, OF INDETERMINATE AGE Electronically Signed On 07-01-16 16:46:30 CDT by SHANNAN LINDO [email or web address]
--- NOTE | 2016-06-28 08:30 | Cardiology Progress Note ---
<Delilah Baker E - Last Filed: 06/28/16 08:30> Assessment and Plan - Time spent with patient Time spent with patient: Greater than 30 minutes (1) Dizziness Status: Resolved Assessment and plan: See plan of care listed below Current Visit: Yes (2) CAD (coronary artery disease) Status: Chronic Assessment and plan: See plan of care listed below Current Visit: Yes (3) Hypertension Status: Chronic Assessment and plan: See plan of care listed below Current Visit: Yes (4) Dyslipidemia Status: Chronic Assessment and plan: See plan of care listed below Current Visit: Yes (5) Left carotid bruit Status: Chronic Assessment and plan: See plan of care listed below Current Visit: Yes (6) Bradycardia Status: Acute Assessment and plan: See plan of care listed below Current Visit: Yes (7) Chest pain Status: Resolved Assessment and plan: See plan of care listed below Current Visit: Yes Cardiology - PN: Subj Interval history: ELECTRICIAN FRONT: DR. DENNEY Patient is being seen in the ICU. SUMMARY: Mr. Hayes is a 51 year old male routinely followed by Dr. Denney. He has a history of known coronary artery disease, hypertension, dyslipidemia, remote tobaccoism. Patient presented to the emergency department at [facility] June 26, 2016 with complaints of dizziness, chest discomfort and left shoulder pain. Cardiac biomarkers were negative. EKG was stable. He underwent elective cardiac catheterization, performed by Dr. Dick, June 27, 2016 with the following impression noted: Impression: 1. Normal overall LV systolic function with ejection fraction assessment be 65 % with discrete area of anterolateral akinesis home (likely related to old diagonal occlusion) 2. Right dominant system 3. Coronary artery disease as described above including but not limited to: A. Mild less than 30% proximally disease with discrete 50% very distal stenosis B. Diffusely diseased thin, long OM1 branch as detailed above C. Patent proximal and mid RCA stents with distal RCA occlusion and filling of the PDA and posterior lateral by [id number] collaterals 4. Status post open and stenting of distal RCA chronic total occlusion with 2.25 x 38 drug-eluting stent (synergy), and follow-up overlap stenting of the distal RCA to proximal PDA with 2.0 x 12 bare metal, mini vision stent with excellent result after post-dilating proximal Synergy stent with 2.5 x 25 balloon. Recommendation discussion: I believe that she did very good result stenting the patient's distal RCA chronic total occlusion. I "jailed" the ostial right posterior lateral where an old stent was noted. This remained opened although there is a tight stenosis here. I suspect this will remain open, we will close in the provided flow through the [id number] collaterals which are noted. He'll continue on baby aspirin Brilinta as previously. DAY 2 JUNE 28, 2016: Overnight, the patient has done well. He denies chest pain, heaviness or tightness. He has not been ambulatory yet. Right groin is soft, free of hematoma or bruit. Distal pulses 3+. Labs are stable this morning. Carotid ultrasound reveals no significant stenosis. Metoprolol was held during the night due to sinus bradycardia with heart rate in the 40s. This morning, Norvasc has been ordered and will be administered for better control of his elevated blood pressure. Patient has an order to transfer to telemetry. Hopefully, patient may be considered for discharge tomorrow. ASSESSMENT/PLAN: 1. CHEST PAIN -resolved status post PCI. Continue aspirin 81 mg orally daily , Brilinta 90 mg orally twice daily 2. KNOWN CAD -status post intervention. Seems to be progressing well. 3. HYPERTENSION -systolic blood pressure 170s during the night. Norvasc has been added this morning. Beta-blockade was held during the night due to lower heart rates. 4. DYSLIPIDEMIA -increased Lipitor yesterday for better control of his LDL. 5. DIZZINESS -dizziness could conceivably be related to lower heart rates. He is feeling better this morning, no additional reported dizziness. 6. REMOTE TOBACCOISM -no longer smoker. Reinforced the merits of tobacco 7. LEFT CAROTID BRUIT -benign per carotid ultrasound. Exam (Progress Note) - Constitutional Vitals: Period Temp Pulse Resp BP Sys/Ivy Pulse Ox Last 24 Hr 98.2 F-99.8 F 44-78 12-22 137-187/59-97 97-100 Exam: General: [Appears well with no apparent distress.] [Pleasant and cooperative. ] [Appears comfortable.] HEENT: [PERRL, normocephalic, atraumatic. Mucous membranes moist. No jaundice noted. Conjunctiva moist and clear, sclerae anicteric] Neck: No JVD/HJR, no thyromegaly or lymphadenopathy noted. Left carotid bruit appreciated. Cardiac: [Regular rate and rhythm.] [No murmur rub or gallop.] Lungs: [Clear to auscultation without accessory muscle use to assist the respiratory pattern.] Not requiring oxygen Abdomen: Soft, bowel sounds normoactive. Nontender and nondistended. No abdominal bruit or thrill noted. No masses noted. Musculoskeletal: No fluid collection. Decreased range of motion is noted. Extremities: Right groin soft, free of hematoma or bruit. No clubbing, cyanosis noted. [ No edema noted.] Upper extremity pulses 2+. Lower extremity pulses 2+. Capillary refill less than 3 seconds. Skin: No unusual lesions or rashes. No skin breakdown appreciated. Neuro: Awake, alert and oriented 3. Moves all extremities well without hemiparesis or paralysis. No essential tremor is appreciated. Result/EKG - Labs CBC & BMP: 06/28/16 05:08 06/28/16 05:08 Lab Results: I have reviewed the past 24 hour labs Labs: Laboratory Results - last 24 hr 06/27/16 06/28/16 06/28/16 15:12 05:08 05:08 WBC 10.8 RBC 4.63 Hgb 13.9 L Hct 40.3 L MCV 87.0 MCH 30 MCHC 34.5 RDW 12.8 Plt Count 219 MPV 11.7 Neut % (Auto) 55.4 Lymph % (Auto) 36.6 [place] % (Auto) 5.9 Eos % (Auto) 1.1 Baso % (Auto) 0.7 Neut # (Auto) 6.0 Lymph # (Auto) 4.0 [place] # (Auto) 0.6 Eos # (Auto) 0.1 Baso # (Auto) 0.1 Immature Gran % 0.3 Nucleated RBC % 0.0 Immature Gran # 0.03 Nucleated RBCs # 0.00 Sodium 140 Potassium 4.0 Chloride 108 H Carbon Dioxide 25 Anion Gap 11.0 BUN 11 Creatinine 0.90 GFR Calculation 159 BUN/Creatinine Ratio 12.00 Glucose 118 H Calculated Osmolality 278.4 Calcium 8.7 Magnesium 2.2 Total Creatine Kinase 128 D CK-MB (CK-2) 1.6 Troponin I 0.023 06/28/16 05:08 WBC RBC Hgb Hct MCV MCH MCHC RDW Plt Count MPV Neut % (Auto) Lymph % (Auto) [place] % (Auto) Eos % (Auto) Baso % (Auto) Neut # (Auto) Lymph # (Auto) [place] # (Auto) Eos # (Auto) Baso # (Auto) Immature Gran % Nucleated RBC % Immature Gran # Nucleated RBCs # Sodium 140 Potassium 4.0 Chloride 109 H Carbon Dioxide 23 Anion Gap 12.0 BUN 13 Creatinine 0.90 GFR Calculation 159 BUN/Creatinine Ratio 14.00 Glucose 115 H Calculated Osmolality 279.4 Calcium 8.6 Magnesium Total Creatine Kinase 119 CK-MB (CK-2) 1.7 Troponin I 0.298 H D - Diagnostic Findings Procedure: Chest x-ray: report reviewed by me - EKG EKG results: interpreted by ia EKG shows: bradycardia, sinus rhythm Specialty Discharge - Follow Up or Referrals <Rafael Kasper - Last Filed: 06/28/16 10:25> Cardiology - PN: Subj Interval history: Patient personally interviewed and examined and chart reviewed. Discussed the patient's case with Delilah Baker LEVERMAN and agree with her note and evaluation and exam. Patient doing well after RCA stenting yesterday. His groin is stable. He is had no source rest chest pain dizziness or other symptomatology. Has not had the atypical left arm pain that he was having yesterday. He is progressing point he is going upstairs and hopefully discharge tomorrow. His biggest issue is hypertension in his medications are being adjusted. The most part that we can leave this to the primary service. Exam (Progress Note) - Constitutional Vitals: Period Temp Pulse Resp BP Sys/Ivy Pulse Ox Last 24 Hr 98.2 F-99.8 F 44-78 12-22 137-187/59-97 97-100 Result/EKG - Labs CBC & BMP: 06/28/16 05:08 06/28/16 05:08 Labs: Laboratory Results - last 24 hr 06/27/16 06/28/16 06/28/16 15:12 05:08 05:08 WBC 10.8 RBC 4.63 Hgb 13.9 L Hct 40.3 L MCV 87.0 MCH 30 MCHC 34.5 RDW 12.8 Plt Count 219 MPV 11.7 Neut % (Auto) 55.4 Lymph % (Auto) 36.6 [place] % (Auto) 5.9 Eos % (Auto) 1.1 Baso % (Auto) 0.7 Neut # (Auto) 6.0 Lymph # (Auto) 4.0 [place] # (Auto) 0.6 Eos # (Auto) 0.1 Baso # (Auto) 0.1 Immature Gran % 0.3 Nucleated RBC % 0.0 Immature Gran # 0.03 Nucleated RBCs # 0.00 Sodium 140 Potassium 4.0 Chloride 108 H Carbon Dioxide 25 Anion Gap 11.0 BUN 11 Creatinine 0.90 GFR Calculation 159 BUN/Creatinine Ratio 12.00 Glucose 118 H Calculated Osmolality 278.4 Calcium 8.7 Magnesium 2.2 Total Creatine Kinase 128 D CK-MB (CK-2) 1.6 Troponin I 0.023 06/28/16 05:08 WBC RBC Hgb Hct MCV MCH MCHC RDW Plt Count MPV Neut % (Auto) Lymph % (Auto) [place] % (Auto) Eos % (Auto) Baso % (Auto) Neut # (Auto) Lymph # (Auto) [place] # (Auto) Eos # (Auto) Baso # (Auto) Immature Gran % Nucleated RBC % Immature Gran # Nucleated RBCs # Sodium 140 Potassium 4.0 Chloride 109 H Carbon Dioxide 23 Anion Gap 12.0 BUN 13 Creatinine 0.90 GFR Calculation 159 BUN/Creatinine Ratio 14.00 Glucose 115 H Calculated Osmolality 279.4 Calcium 8.6 Magnesium Total Creatine Kinase 119 CK-MB (CK-2) 1.7 Troponin I 0.298 H D
[2016-06-28] MEDS: METOPROLOL TARTRATE 25 MG TABLET PO SCH ×2 (10:07→20:53)
[2016-06-28] MEDS: SODIUM CHLORIDE 0.9% 1,000 ML IV SCH (10:09)
[2016-06-28] MEDS: NITROGLYCERIN 2% OINT 1 INCH/GM PACK TOP SCH ×2 (10:10→15:51)
[2016-06-28] MEDS: ATORVASTATIN 80 MG TABLET PO SCH (20:53)
[2016-06-29 05:44] LABS: Basophils # 0.1 10*3/uL (0.0-0.2); Basophils % 0.8 % (0.0-0.8); Eosinophils # 0.2 10*3/uL (0.0-0.87); Eosinophils % 2.1 % (0.00-10.9); Hematocrit 41.9 VOL% (42.0-52.0); Hemoglobin 14.2 GM/DL (14.0-18.0); Immature Granulocytes % 0.3 %; Immature Granulocytes Absolute 0.03 #; Lymphocytes # 4.1 10*3/uL (1.4-4.0); Lymphocytes % 44.6 % (21.2-54.2); Mean Corpuscular HGB Conc 33.9 GM/DL (32-36); Mean Corpuscular Hemoglobin 30 PG (27-34); Mean Corpuscular Volume 89.3 FL (87-102); Mean Platelet Volume 12.4 FL (9.6-12.0); Monocytes # 0.7 10*3/uL (0.11-0.8); Monocytes % 7.6 % (1.7-12.7); Neutrophils # 4.1 10*3/uL (1.4-7.4); Neutrophils % 44.6 % (38.7-73.9); Platelet Count 200 T/CUMM (130-400); Red Blood Count 4.69 MC/CUMM (3.8-5.5); Red Cell Distribution Width 12.8 % (9.3-17.3); White Blood Count 9.3 T/CUMM (4-12)
[2016-06-29 06:17] LABS: Calcium 8.6 MG/DL (8.5-10.1); Magnesium 2.4 MG/DL (1.8-2.4); Osmolality,Calculated 279.4 MOS/KG (273-304); Potassium 4.2 MMOL/L (3.5-5.1)
[2016-06-29] MEDS: ASPIRIN EC 81 MG TABLET PO SCH (09:05)
[2016-06-29] MEDS: ALLOPURINOL 100 MG TABLET PO SCH (09:05)
[2016-06-29] MEDS: LOSARTAN 50 MG TABLET PO SCH (09:05)
[2016-06-29] MEDS: PANTOPRAZOLE 20 MG TABLET PO SCH (09:05)
[2016-06-29] MEDS: amLODIPine 10 MG TABLET PO SCH (09:06)
[2016-06-29] MEDS: TICAGRELOR 90 MG TABLET PO SCH (09:06)
[2016-06-29] MEDS: METOPROLOL TARTRATE 25 MG TABLET PO SCH (09:06)
--- NOTE | 2016-06-29 11:00 | Cardiology Progress Note ---
<Andreea Li - Last Filed: 06/29/16 10:52> Assessment and Plan (1) CAD (coronary artery disease) Status: Chronic Assessment and plan: Patient is now status post revascularization. From a cardiology standpoint, he is stable for discharge. He will need to be discharged home with the following cardiac medications: Brilinta 90 mg p.o. twice daily Aspirin 81 mg p.o. daily Lipitor 80 mg daily Metoprolol 25 mg p.o. twice daily Amlodipine 10 mg daily Losartan 100 mg p.o. daily Nitroglycerin sublingual as needed chest pain Patient will be given a follow-up appointment with Dr. Denney in 1-2 weeks with EKG, BMP and magnesium. Current Visit: Yes (2) Dyslipidemia Status: Chronic Assessment and plan: Continue current plan of care with lipid lowering agent. Current Visit: Yes (3) Hypertension Status: Chronic Assessment and plan: This is better controlled after initiation of Norvasc. Will continue current plan of care. Current Visit: Yes (4) Left carotid bruit Status: Chronic Assessment and plan: Benign per carotid ultrasound. Current Visit: Yes (5) Chest pain Status: Resolved Assessment and plan: Patient is now status post revascularization. Denies chest pain, heaviness and tightness. Current Visit: Yes Cardiology - PN: Subj Interval history: WIRE ROLLER: DR. DENNEY SUMMARY: Mr. Hayes is a 51 year old male routinely followed by Dr. Denney. He has a history of known coronary artery disease, hypertension, dyslipidemia, remote tobaccoism. Patient presented to the emergency department at [facility] June 26, 2016 with complaints of dizziness, chest discomfort and left shoulder pain. Cardiac biomarkers were negative. EKG was stable. He underwent elective cardiac catheterization, performed by Dr. Dick, June 27, 2016 with the following impression noted: Impression: 1. Normal overall LV systolic function with ejection fraction assessment be 65 % with discrete area of anterolateral akinesis home (likely related to old diagonal occlusion) 2. Right dominant system 3. Coronary artery disease as described above including but not limited to: A. Mild less than 30% proximally disease with discrete 50% very distal stenosis B. Diffusely diseased thin, long OM1 branch as detailed above C. Patent proximal and mid RCA stents with distal RCA occlusion and filling of the PDA and posterior lateral by [id number] collaterals 4. Status post open and stenting of distal RCA chronic total occlusion with 2.25 x 38 drug-eluting stent (synergy), and follow-up overlap stenting of the distal RCA to proximal PDA with 2.0 x 12 bare metal, mini vision stent with excellent result after post-dilating proximal Synergy stent with 2.5 x 25 balloon. Recommendation discussion: I believe that she did very good result stenting the patient's distal RCA chronic total occlusion. I "jailed" the ostial right posterior lateral where an old stent was noted. This remained opened although there is a tight stenosis here. I suspect this will remain open, we will close in the provided flow through the [id number] collaterals which are noted. He'll continue on baby aspirin Brilinta as previously. Patient did well post heart catheterization and was transferred to telemetry yesterday. This morning, he denies chest pain, heaviness and tightness. Right groin is soft without bleeding, hematoma and bruit. Distal pulses are 2+. Carotid ultrasound revealed no significant stenosis. Blood pressure is better controlled today with systolic blood pressure 139 noted. Patient has ambulated around the room and down the de [place] without difficulty. Right groin has remained stable post ambulation. Labs are stable this morning. Creatinine 0.9. Potassium 4.2 magnesium 2.4. Patient is currently in sinus bradycardia with heart rates in the 50s. From a Cardiology standpoint, patient is stable for discharge. Patient will need to be discharged home on the following cardiac medications: Brilinta 90 mg p.o. twice daily Aspirin 81 mg p.o. daily Lipitor 80 mg daily Metoprolol 25 mg p.o. twice daily Amlodipine 10 mg daily Losartan 100 mg p.o. daily Nitroglycerin sublingual as needed chest pain Schedule follow-up appointment with Dr. Denney in 1-2 weeks with EKG, BMP and magnesium Exam (Progress Note) - Constitutional Vitals: Period Temp Pulse Resp BP Sys/Ivy Pulse Ox Last 24 Hr 97.3 F-99.4 F 52-74 18-20 131-176/60-90 95-100 Exam: General: [Appears well with no apparent distress.] [Pleasant and cooperative. ] [Appears comfortable.] HEENT: [PERRL, normocephalic, atraumatic. Mucous membranes moist. No jaundice noted. Conjunctiva moist and clear, sclerae anicteric] Neck: No JVD/HJR, no thyromegaly or lymphadenopathy noted. Left carotid bruit appreciated. Cardiac: [Regular rate and rhythm.] [No murmur rub or gallop.] Lungs: [Clear to auscultation without accessory muscle use to assist the respiratory pattern.] Not requiring oxygen Abdomen: Soft, bowel sounds normoactive. Nontender and nondistended. No abdominal bruit or thrill noted. No masses noted. Musculoskeletal: No fluid collection. Decreased range of motion is noted. Extremities: Right groin soft, free of hematoma or bruit. No clubbing, cyanosis noted. [ No edema noted.] Upper extremity pulses 2+. Lower extremity pulses 2+. Capillary refill less than 3 seconds. Skin: No unusual lesions or rashes. No skin breakdown appreciated. Neuro: Awake, alert and oriented 3. Moves all extremities well without hemiparesis or paralysis. No essential tremor is appreciated. Result/EKG - Labs CBC & BMP: 06/29/16 04:37 06/29/16 04:37 Lab Results: I have reviewed the past 24 hour labs Labs: Laboratory Results - last 24 hr 06/29/16 06/29/16 04:37 04:37 WBC 9.3 RBC 4.69 Hgb 14.2 Hct 41.9 L MCV 89.3 MCH 30 MCHC 33.9 RDW 12.8 Plt Count 200 MPV 12.4 H Neut % (Auto) 44.6 Lymph % (Auto) 44.6 [place] % (Auto) 7.6 Eos % (Auto) 2.1 Baso % (Auto) 0.8 Neut # (Auto) 4.1 Lymph # (Auto) 4.1 H [place] # (Auto) 0.7 Eos # (Auto) 0.2 Baso # (Auto) 0.1 Immature Gran % 0.3 Nucleated RBC % 0.0 Immature Gran # 0.03 Nucleated RBCs # 0.00 Sodium 140 Potassium 4.2 Chloride 108 H Carbon Dioxide 23 Anion Gap 13.2 BUN 10 Creatinine 0.90 GFR Calculation 159 BUN/Creatinine Ratio 11.00 Glucose 129 H Calculated Osmolality 279.4 Calcium 8.6 Magnesium 2.4 Specialty Discharge - Follow Up or Referrals Follow up with: Keny Denney MD [Physician] - 07/14/16 10:10 am (Please schedule follow-up appointment with Dr. Denney in 1-2 weeks with BMP, magnesium and EKG.) <Rafael Kasper - Last Filed: 06/29/16 14:58> Cardiology - PN: Subj Interval history: Patient personally interviewed and examined and chart reviewed. Reviewed the patient's case with Andreea Li [employer]OR HOTEL MANAGER. The patient done well after intervention without any return of his symptomatology. She had no shortness of breath chest discomfort. Examination without difficulty. He's had no groin issues from his catheterization site. He has follow with Dr. Edouard Denney schedule. He will be discharged. He can return to work Monday especially since his work as a low level of intensity. He has no questions. Exam (Progress Note) - Constitutional Vitals: Period Temp Pulse Resp BP Sys/Ivy Pulse Ox Last 24 Hr 97.3 F-99.4 F 52-74 16-20 131-161/60-88 95-100 Result/EKG - Labs CBC & BMP: 06/29/16 04:37 06/29/16 04:37 Labs: Laboratory Results - last 24 hr 06/29/16 06/29/16 04:37 04:37 WBC 9.3 RBC 4.69 Hgb 14.2 Hct 41.9 L MCV 89.3 MCH 30 MCHC 33.9 RDW 12.8 Plt Count 200 MPV 12.4 H Neut % (Auto) 44.6 Lymph % (Auto) 44.6 [place] % (Auto) 7.6 Eos % (Auto) 2.1 Baso % (Auto) 0.8 Neut # (Auto) 4.1 Lymph # (Auto) 4.1 H [place] # (Auto) 0.7 Eos # (Auto) 0.2 Baso # (Auto) 0.1 Immature Gran % 0.3 Nucleated RBC % 0.0 Immature Gran # 0.03 Nucleated RBCs # 0.00 Sodium 140 Potassium 4.2 Chloride 108 H Carbon Dioxide 23 Anion Gap 13.2 BUN 10 Creatinine 0.90 GFR Calculation 159 BUN/Creatinine Ratio 11.00 Glucose 129 H Calculated Osmolality 279.4 Calcium 8.6 Magnesium 2.4
[2016-06-29 12:23] VITALS: BP 158/83
--- NOTE | 2016-06-29 14:32 | Discharge Summary ---
Hospital Course - Hospital Course Hospital Course: Mr Hayes came with chest pain. He did not have an [place] but at cath he had 2 more stents placed in distal chronic RCA occlusion. He is feeling better. His BP was a little elevated afte his metoprolol dose was decreased due to bradycardia so Norvasc was added and his blood pressure is under better control. He remains in sinus bradycardia with rates in the 50s. He was seen by Dr Kasper and will follow up in clinic with Dr Denney. - Time spent with patient Time with patient DS: Less than 30 minutes Diagnosis - Discharge Diagnosis (1) Unstable angina pectoris Status: Resolved (2) Bradycardia Status: Chronic (3) CAD (coronary artery disease) Status: Chronic (4) Hypertension Status: Chronic (5) Dyslipidemia Status: Chronic (6) Left carotid bruit Status: Chronic Specialty Discharge - Follow Up or Referrals Follow up with: Keny Denney MD [Physician] - (Please schedule follow-up appointment with Dr. Denney in 1-2 weeks with BMP, magnesium and EKG.) Discharge Plan - Discharge Data Disposition: Disch To Home/Self Care Condition at Discharge: Stable Discharge Diet: heart healthy Activity: resume usual activities as tolerated - Discharge Medications New Atorvastatin [Lipitor] 80 mg PO BEDTIME #30 tablet Metoprolol Tartrate Tab [Lopressor Tab] 25 mg PO BID tablet Nitroglycerin Sl Tab [Nitrostat] 0.4 mg SL Q5M PRN #30 tablet PRN Reason: Chest Pain amLODIPine [Norvasc] 10 mg PO DAILY #30 tablet Continue Losartan Potassium 100 mg PO DAILY Allopurinol 100 mg PO DAILY Ticagrelor [Brilinta] 90 mg PO BID Clorazepate Dipotassium 3.75 mg PO TID PRN PRN Reason: Anxiety Aspirin [Aspirin EC] 81 mg PO DAILY Discontinued Metoprolol Tartrate Tab [Lopressor Tab] 25 mg PO TID Atorvastatin [Lipitor] 40 mg PO DAILY - Follow Up or Referral Follow Up: Keny Denney MD [Physician] - (Please schedule follow-up appointment with Dr. 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 Absent: scleral icterus - Respiratory Respiratory exam: Present: clear to auscultation bilaterally - Cardiovascular Cardiovascular exam: Present: regular rate and rhythm - GI/Abdominal GI/Abdominal exam: Present: normal bowel sounds, soft. Absent: tenderness - Extremities Exam Extremities exam: Absent: edema Discharge Results Labs on day of discharge: Labs from last 24 hours 06/29/16 06/29/16 04:37 04:37 WBC 9.3 RBC 4.69 Hgb 14.2 Hct 41.9 L MCV 89.3 MCH 30 MCHC 33.9 RDW 12.8 Plt Count 200 MPV 12.4 H Neut % (Auto) 44.6 Lymph % (Auto) 44.6 [place] % (Auto) 7.6 Eos % (Auto) 2.1 Baso % (Auto) 0.8 Neut # (Auto) 4.1 Lymph # (Auto) 4.1 H [place] # (Auto) 0.7 Eos # (Auto) 0.2 Baso # (Auto) 0.1 Immature Gran % 0.3 Nucleated RBC % 0.0 Immature Gran # 0.03 Nucleated RBCs # 0.00 Sodium 140 Potassium 4.2 Chloride 108 H Carbon Dioxide 23 Anion Gap 13.2 BUN 10 Creatinine 0.90 GFR Calculation 159 BUN/Creatinine Ratio 11.00 Glucose 129 H Calculated Osmolality 279.4 Calcium 8.6 Magnesium 2.4 DS: Provider Date of admission: 06/26/16 21:46 Primary care physician: . No PCP Attending physician on admission: Brody De La Paz MD Consults: 06/26/16 21:55 Consult to Physician [CONS] Routine Comment: ON-CALL PHYSICIAN RECURRENT CHEST PAIN Consulting Provider: Consult to Specialist Group: Cardiology When should Consulting Provider be notified: In am 06/27/16 13:51 Consult to Cardiac Rehabilitation [CONS] Routine Reason for Cardiac Rehabilitation: Appt Out Pt Cardiac Rehab Consult Comment: stent RCA Discharging clinician: Raina Smalls MD
== END 2016-06-29 15:33 | disposition home or self-care (01) | DRG 247 ==
LOC: N.ED 17:09 → N.EDINP 21:46 → SUATTDRO 21:46 → N.ICU 22:27 → N.TELEN 06-28 17:30
PROVIDERS: ADMIT Internal Medicine Infectious Disease; ATTEND Internal Medicine
PROC: CLCCHCL (ICD-10-PCS; 2016-06-27 12:45)

== ENCOUNTER 2017-01-27 09:14 | Observation (INO) ==
[2017-01-27] MEDS ORDERED: NITROGLYCERIN 2% OINT 1 INCH/GM PACK TOP STA (09:36)
[2017-01-27] MEDS ORDERED: NITROGLYCERIN 2% OINT 1 INCH/GM PACK TOP ONE (09:46)
[2017-01-27 09:49] LABS: Basophils # 0.1 10*3/uL (0.0-0.2); Basophils % 0.8 % (0.0-0.8); Eosinophils # 0.2 10*3/uL (0.0-0.87); Hematocrit 36.2 VOL% (42.0-52.0); Immature Granulocytes % 0.4 %; Immature Granulocytes Absolute 0.04 #; Lymphocytes # 4.2 10*3/uL (1.4-4.0); Lymphocytes % 42.8 % (21.2-54.2); Mean Corpuscular HGB Conc 35.9 GM/DL (32-36); Mean Corpuscular Hemoglobin 32 PG (27-34); Mean Corpuscular Volume 87.9 FL (87-102); Monocytes # 0.6 10*3/uL (0.11-0.8); Monocytes % 6.2 % (1.7-12.7); Neutrophils # 4.7 10*3/uL (1.4-7.4); Neutrophils % 47.8 % (38.7-73.9); Platelet Count 223 T/CUMM (130-400); Red Blood Count 4.12 MC/CUMM (3.8-5.5); Red Cell Distribution Width 12.3 % (9.3-17.3); White Blood Count 9.9 T/CUMM (4-12)
[2017-01-27 10:00] LABS: PT Patient Result 10.1 SECS; Partial Thromboplastin Time 25.9 SECS (0-40)
[2017-01-27 10:26] LABS: Alanine Aminotransferase 41 U/L (16-61); Albumin 4.1 G/DL (3.4-5.0); Alkaline Phosphatase 166 U/L (45-117); Aspartate Amino Transferase 25 U/L (0-37); Bilirubin,Total < 0.39 MG/DL (0.2-1.0); Blood Urea Nitrogen 13 MG/DL (7-18); Calcium 9.4 MG/DL (8.5-10.1); Glucose 137 MG/DL (74-106); Osmolality,Calculated 280.4 MOS/KG (273-304); Potassium 3.9 MMOL/L (3.5-5.1); Sodium 140 MMOL/L (136-145); Total Protein 7.9 G/DL (6.4-8.3); Troponin I Only < 0.015 NG/ML (0.00-0.045)
[2017-01-27 10:48] LABS: Barbiturates Screen,Urine Negative (Negative); Benzodiazepines Screen,Urine Negative (Negative); Cannabinoid Screen,Urine Negative (Negative); Opiate Screen,Urine Negative (Negative); Phencyclidine Screen,Urine Negative (Negative)
[2017-01-27 10:51] LABS: Apearance,Urine CLEAR (Clear); Bilirubin,Urine Negative (Negative); Blood, Urine Negative (Negative); Glucose,Urine (UA) Negative (Negative); Ketones,Urine Negative (Negative); Mucus,Urine Occasional /LPF (Occasional); Nitrite,Urine Negative (Negative); Protein,Urine Negative; RBC,Urine 1 /HPF (0-4); Squamous Epithelial Cell,Urine Occasional /HPF (0-10); Urine Color Yellow (Yellow); Urine Specific Gravity 1.013 (1.001-1.035); WBC,Urine <1 /HPF (0-6)
[2017-01-27] MEDS ORDERED: guaiFENesin/DM ER 600-30 MG TABLET PO PRN (12:22)
[2017-01-27] MEDS ORDERED: ONDANSETRON 4 MG/2 ML VIAL IV PRN (12:22)
[2017-01-27] MEDS ORDERED: MAGNESIUM SULF RIDER 2 GM in PREMIX 1 EACH IV PRN (12:22)
[2017-01-27] MEDS ORDERED: POTASSIUM CHLORIDE 20 MEQ TABLET PO PRN (12:22)
[2017-01-27] MEDS ORDERED: MAGNESIUM SULF RIDER 4 GM in PREMIX 1 EACH IV PRN (12:22)
[2017-01-27] MEDS ORDERED: ZALEPLON 5 MG CAPSULE PO PRN (12:22)
[2017-01-27] MEDS ORDERED: LACTULOSE 20 GM/30 ML UDCUP PO PRN (12:22)
[2017-01-27] MEDS ORDERED: DOCUSATE SODIUM 100 MG CAPSULE PO PRN (12:22)
[2017-01-27] MEDS ORDERED: diphenhydrAMINE CAP 25 MG CAPSULE PO PRN (12:22)
[2017-01-27] MEDS ORDERED: KETOROLAC 10 MG TABLET PO PRN (14:25)
[2017-01-27] MEDS: FLUTICASONE 50 MCG NASAL SPRAY 16 GM BOTTLE BOTH NARES SCH (15:17)
[2017-01-27] MEDS: PANTOPRAZOLE 40 MG TABLET PO SCH (15:18)
[2017-01-27] MEDS: ACETAMINOPHEN 325 MG TABLET PO PRN (15:18)
[2017-01-27] MEDS: CETIRIZINE 10 MG TABLET PO SCH (15:18)
[2017-01-27 15:55] LABS: Troponin I Only < 0.015 NG/ML (0.00-0.045)
[2017-01-27 18:06] LABS: Troponin I Only < 0.015 NG/ML (0.00-0.045)
[2017-01-27 19:07] LABS: Troponin I Only < 0.015 NG/ML (0.00-0.045)
[2017-01-27] MEDS ORDERED: ATORVASTATIN 80 MG TABLET PO SCH (21:00)
[2017-01-27] MEDS ORDERED: NAPROXEN 250 MG TABLET PO ONE (21:12)
[2017-01-27] MEDS: TICAGRELOR 90 MG TABLET PO SCH (21:28)
[2017-01-27] MEDS: ACETAMINOPHEN 325 MG TABLET PO SCH (21:28)
[2017-01-27] MEDS: traMADol 50 MG TABLET PO SCH (21:28)
[2017-01-28 05:56] LABS: Basophils # 0.1 10*3/uL (0.0-0.2); Basophils % 1.2 % (0.0-0.8); Eosinophils # 0.3 10*3/uL (0.0-0.87); Eosinophils % 3.3 % (0.00-10.9); Hematocrit 36.9 VOL% (42.0-52.0); Hemoglobin 12.8 GM/DL (14.0-18.0); Immature Granulocytes % 0.2 %; Immature Granulocytes Absolute 0.02 #; Lymphocytes # 4.8 10*3/uL (1.4-4.0); Mean Corpuscular HGB Conc 34.7 GM/DL (32-36); Mean Corpuscular Hemoglobin 31 PG (27-34); Mean Corpuscular Volume 88.7 FL (87-102); Mean Platelet Volume 12.5 FL (9.6-12.0); Monocytes # 0.6 10*3/uL (0.11-0.8); Monocytes % 6.1 % (1.7-12.7); Neutrophils # 3.4 10*3/uL (1.4-7.4); Neutrophils % 37.2 % (38.7-73.9); Platelet Count 218 T/CUMM (130-400); Red Blood Count 4.16 MC/CUMM (3.8-5.5); Red Cell Distribution Width 12.4 % (9.3-17.3); White Blood Count 9.2 T/CUMM (4-12)
[2017-01-28 06:48] LABS: Calcium 8.9 MG/DL (8.5-10.1); Magnesium 2.1 MG/DL (1.8-2.4); Osmolality,Calculated 286.1 MOS/KG (273-304); Potassium 4.2 MMOL/L (3.5-5.1); Risk Ratio 5.09; VLDL CHOLESTEROL 58.4 MG/DL
[2017-01-28 08:09] LABS: Eosinophils 6 % (0-10); Giant Platelets Few; Lymphocytes 43 % (20-55); Platelet Estimate Adequate; Segmented Neutrophils 46 % (50-85); Total Cells Counted 100
[2017-01-28 08:10] LABS: Burr Cells Slight; Hypochromasia Slight
[2017-01-28] MEDS: TICAGRELOR 90 MG TABLET PO SCH (08:30)
[2017-01-28] MEDS: CETIRIZINE 10 MG TABLET PO SCH (08:30)
[2017-01-28] MEDS: ACETAMINOPHEN 325 MG TABLET PO SCH (08:30)
[2017-01-28] MEDS: traMADol 50 MG TABLET PO SCH (08:31)
[2017-01-28] MEDS: PANTOPRAZOLE 40 MG TABLET PO SCH (08:31)
[2017-01-28] MEDS: FLUTICASONE 50 MCG NASAL SPRAY 16 GM BOTTLE BOTH NARES SCH (08:32)
[2017-01-28] MEDS ORDERED: ALLOPURINOL 100 MG TABLET PO SCH (09:00)
[2017-01-28] MEDS ORDERED: ASPIRIN EC 81 MG TABLET PO SCH (09:00)
[2017-01-28] MEDS ORDERED: amLODIPine 10 MG TABLET PO SCH (09:00)
[2017-01-28] MEDS ORDERED: LOSARTAN 50 MG TABLET PO SCH (09:00)
[2017-01-28] MEDS ORDERED: ENOXAPARIN 40 MG/0.4 ML SYRINGE SUBCUT SCH (09:00)
[2017-01-28 12:09] VITALS: BP 164/74
[2017-01-28] MEDS: ACETAMINOPHEN 325 MG TABLET PO PRN (12:43)
[2017-01-28] MEDS ORDERED: GABAPENTIN 100 MG CAPSULE PO SCH (21:11)
== END 2017-01-28 13:57 | disposition home or self-care (01) ==
LOC: N.EDINP 09:14 → N.ED 09:14 → N.TELEN 13:58
PROVIDERS: ADMIT Internal Medicine Cardiovascular Disease; ATTEND Internal Medicine Cardiovascular Disease

== ENCOUNTER 2017-04-29 16:11 | Observation (INO) ==
[2017-04-29] MEDS ORDERED: INSULIN REGULAR 100 UNIT/ML IV STA ×2 (16:41→18:09)
[2017-04-29] MEDS ORDERED: SODIUM CHLORIDE 0.9% 1,000 ML IV STA ×2 (16:41→18:11)
[2017-04-29] MEDS ORDERED: INSULIN REGULAR 100 UNIT/ML ONE ×3 (16:59→18:36)
[2017-04-29 17:14] LABS: Basophils # 0.1 10*3/uL (0.0-0.2); Basophils % 0.4 % (0.0-0.8); Eosinophils % 0.1 % (0.00-10.9); Hematocrit 42.2 VOL% (42.0-52.0); Hemoglobin 14.3 GM/DL (14.0-18.0); Immature Granulocytes % 0.3 %; Immature Granulocytes Absolute 0.04 #; Lymphocytes # 3.1 10*3/uL (1.4-4.0); Lymphocytes % 27.1 % (21.2-54.2); Mean Corpuscular HGB Conc 33.9 GM/DL (32-36); Mean Corpuscular Hemoglobin 30 PG (27-34); Mean Corpuscular Volume 89.2 FL (87-102); Mean Platelet Volume 13.6 FL (9.6-12.0); Monocytes # 0.7 10*3/uL (0.11-0.8); Monocytes % 5.6 % (1.7-12.7); Neutrophils # 7.7 10*3/uL (1.4-7.4); Neutrophils % 66.5 % (38.7-73.9); Platelet Count 219 T/CUMM (130-400); Red Blood Count 4.73 MC/CUMM (3.8-5.5); Red Cell Distribution Width 11.9 % (9.3-17.3); White Blood Count 11.5 T/CUMM (4-12)
[2017-04-29 17:23] LABS: INR 0.9; PT Patient Result 9.9 SECS
[2017-04-29] MEDS ORDERED: ASPIRIN 325 MG TABLET PO STA (17:26)
[2017-04-29] MEDS ORDERED: ASPIRIN 325 MG TABLET ONE (17:28)
[2017-04-29 17:40] LABS: Alanine Aminotransferase 40 U/L (16-61); Albumin 4.7 G/DL (3.4-5.0); Alkaline Phosphatase 377 U/L (45-117); Aspartate Amino Transferase 10 U/L (0-37); Blood Urea Nitrogen 18 MG/DL (7-18); Calcium 9.6 MG/DL (8.5-10.1); Osmolality,Calculated 302.6 MOS/KG (273-304); Potassium 4.5 MMOL/L (3.5-5.1); Sodium 124 MMOL/L (136-145); Thyroid Stimulating Hormone 0.771 uIU/ml (0.358-3.74); Total Protein 8.3 G/DL (6.4-8.3); Troponin I Only < 0.015 NG/ML (0.00-0.045)
[2017-04-29 17:45] LABS: Glucose 1040 MG/DL (74-106)
[2017-04-29 17:53] LABS: Apearance,Urine CLEAR (Clear); Bilirubin,Urine Negative (Negative); Blood, Urine Negative (Negative); Glucose,Urine (UA) >=500 mg/dL (Negative); Ketones,Urine Negative (Negative); Nitrite,Urine Negative (Negative); Protein,Urine Negative; Urine Color Colorless (Yellow); Urine Specific Gravity 1.026 (1.001-1.035); Urine Urobilinogen < 2.0 EU/DL (0.2-1.0)
[2017-04-29] MEDS ORDERED: ZALEPLON 5 MG CAPSULE PO PRN (18:06)
[2017-04-29] MEDS ORDERED: GLUCAGON 1 MG VIAL IM PRN (18:06)
[2017-04-29] MEDS ORDERED: DEXTROSE 50% 25 GM/50 ML VIAL IV PRN (18:06)
[2017-04-29 18:07] LABS: Barbiturates Screen,Urine Negative (Negative); Benzodiazepines Screen,Urine Negative (Negative); Cannabinoid Screen,Urine Negative (Negative); Opiate Screen,Urine Negative (Negative); Phencyclidine Screen,Urine Negative (Negative)
[2017-04-29] MEDS ORDERED: MECLIZINE 25 MG TABLET PO PRN (18:07)
[2017-04-29] MEDS ORDERED: CLORAZEPATE 3.75 MG TABLET PO PRN (18:07)
[2017-04-29] MEDS ORDERED: ACETAMINOPHEN 325 MG TABLET PO PRN (18:07)
[2017-04-29] MEDS ORDERED: NITROGLYCERIN SL 0.4 MG TABLET SL PRN (18:07)
[2017-04-29] MEDS ORDERED: traMADol 50 MG TABLET PO PRN (18:07)
[2017-04-29 18:10] LABS: Sedimentation Rate-Westergren 20 MM/HR (0-20)
[2017-04-29] MEDS ORDERED: INSULIN REGULAR 100 UNIT/ML SUBCUT STA (18:10)
[2017-04-29] MEDS ORDERED: ENOXAPARIN 40 MG/0.4 ML SYRINGE SUBCUT SCH (20:00)
[2017-04-29] MEDS ORDERED: ATORVASTATIN 80 MG TABLET PO SCH (21:00)
[2017-04-29] MEDS ORDERED: INSULIN GLARGINE 100 UNIT/ML SUBCUT SCH (21:00)
[2017-04-29] MEDS ORDERED: EZETIMIBE 10 MG TABLET PO SCH (21:00)
[2017-04-29] MEDS: INSULIN REGULAR 100 UNIT/ML SUBCUT SCH (21:52)
[2017-04-29] MEDS: METOPROLOL TARTRATE 25 MG TABLET PO SCH (21:53)
[2017-04-29] MEDS: TICAGRELOR 90 MG TABLET PO SCH (21:54)
[2017-04-29] MEDS: SODIUM CHLORIDE 0.9% 1,000 ML IV SCH (21:55)
[2017-04-29] MEDS: AMOXICILLIN/CLAV 875 MG TABLET PO SCH (22:08)
[2017-04-30] MEDS: SODIUM CHLORIDE 0.9% 1,000 ML IV SCH ×2 (04:15→18:38)
[2017-04-30 06:28] LABS: Calcium 8.6 MG/DL (8.5-10.1); Osmolality,Calculated 289.8 MOS/KG (273-304); Potassium 4.3 MMOL/L (3.5-5.1)
[2017-04-30] MEDS ORDERED: PANTOPRAZOLE 40 MG TABLET PO SCH (09:00)
[2017-04-30] MEDS ORDERED: amLODIPine 10 MG TABLET PO SCH (09:00)
[2017-04-30] MEDS ORDERED: ASPIRIN EC 81 MG TABLET PO SCH (09:00)
[2017-04-30] MEDS ORDERED: LOSARTAN 50 MG TABLET PO SCH (09:00)
[2017-04-30] MEDS ORDERED: ALLOPURINOL 100 MG TABLET PO SCH (09:00)
[2017-04-30] MEDS: metFORMIN 500 MG TABLET PO SCH ×2 (10:18→18:38)
[2017-04-30] MEDS: METOPROLOL TARTRATE 25 MG TABLET PO SCH ×2 (10:18→18:38)
[2017-04-30] MEDS: AMOXICILLIN/CLAV 875 MG TABLET PO SCH (10:19)
[2017-04-30] MEDS: INSULIN REGULAR 100 UNIT/ML SUBCUT SCH ×3 (10:19→16:28)
[2017-04-30] MEDS: TICAGRELOR 90 MG TABLET PO SCH (10:19)
[2017-04-30 17:35] VITALS: BP 135/71
== END 2017-04-30 17:02 | disposition home or self-care (01) ==
LOC: N.ED 16:11 → N.EDINP 18:06 → INTOOBSV 18:06 → N.5E 19:24
PROVIDERS: ADMIT Internal Medicine; ATTEND Internal Medicine

== ENCOUNTER 2017-05-19 08:55 | Observation (INO) ==
[2017-05-19] MEDS ORDERED: NITROGLYCERIN 2% OINT 1 INCH/GM PACK TOP STA (09:46)
[2017-05-19] MEDS ORDERED: ENOXAPARIN 100 MG/ML SYRINGE SUBCUT STA (09:46)
[2017-05-19] MEDS ORDERED: ENOXAPARIN 100 MG/ML SYRINGE SUBCUT ONE (09:53)
[2017-05-19] MEDS ORDERED: NITROGLYCERIN 2% OINT 1 INCH/GM PACK TOP ONE (09:54)
[2017-05-19 09:59] LABS: Basophils # 0.1 10*3/uL (0.0-0.2); Basophils % 0.8 % (0.0-0.8); Eosinophils # 0.1 10*3/uL (0.0-0.87); Hematocrit 35.6 VOL% (42.0-52.0); Hemoglobin 12.4 GM/DL (14.0-18.0); Immature Granulocytes % 0.3 %; Immature Granulocytes Absolute 0.02 #; Lymphocytes # 3.1 10*3/uL (1.4-4.0); Lymphocytes % 40.3 % (21.2-54.2); Mean Corpuscular HGB Conc 34.8 GM/DL (32-36); Mean Corpuscular Hemoglobin 31 PG (27-34); Mean Corpuscular Volume 88.3 FL (87-102); Mean Platelet Volume 12.6 FL (9.6-12.0); Monocytes # 0.5 10*3/uL (0.11-0.8); Monocytes % 6.8 % (1.7-12.7); Neutrophils % 50.8 % (38.7-73.9); Platelet Count 220 T/CUMM (130-400); Red Blood Count 4.03 MC/CUMM (3.8-5.5); Red Cell Distribution Width 12.1 % (9.3-17.3); White Blood Count 7.8 T/CUMM (4-12)
[2017-05-19 10:01] LABS: Osmolality,Calculated 283.3 MOS/KG (273-304); Potassium 3.6 MMOL/L (3.5-5.1)
[2017-05-19] MEDS ORDERED: DEXTROSE 50% 25 GM/50 ML VIAL IV PRN (12:12)
[2017-05-19] MEDS ORDERED: BISACODYL 5 MG TABLET PO PRN (12:12)
[2017-05-19] MEDS ORDERED: ACETAMINOPHEN 325 MG TABLET PO PRN (12:12)
[2017-05-19] MEDS ORDERED: POTASSIUM CHLORIDE 20 MEQ/15 ML UDCUP PER TUBE PRN (12:12)
[2017-05-19] MEDS ORDERED: MAGNESIUM SULF RIDER 2 GM in PREMIX 1 EACH IV PRN (12:12)
[2017-05-19] MEDS ORDERED: MORPHINE 2 MG/1 ML SYRINGE IV PRN (12:12)
[2017-05-19] MEDS ORDERED: GLUCAGON 1 MG VIAL IM PRN (12:12)
[2017-05-19] MEDS ORDERED: DOCUSATE SODIUM 100 MG CAPSULE PO PRN (12:12)
[2017-05-19] MEDS ORDERED: ONDANSETRON 4 MG/2 ML VIAL IV PRN (12:12)
[2017-05-19] MEDS ORDERED: POTASSIUM CHLORIDE 20 MEQ TABLET PO PRN (12:12)
[2017-05-19] MEDS ORDERED: ZALEPLON 5 MG CAPSULE PO PRN (12:12)
[2017-05-19] MEDS ORDERED: CLORAZEPATE 3.75 MG TABLET PO PRN (12:19)
[2017-05-19] MEDS ORDERED: NITROGLYCERIN SL 0.4 MG TABLET SL PRN (12:19)
[2017-05-19] MEDS ORDERED: traMADol 50 MG TABLET PO PRN (12:19)
[2017-05-19] MEDS ORDERED: ENOXAPARIN 40 MG/0.4 ML SYRINGE SUBCUT SCH (12:30)
[2017-05-19] MEDS ORDERED: PANTOPRAZOLE 40 MG TABLET PO SCH ×2 (12:30→21:00)
[2017-05-19] MEDS ORDERED: ISOSORBIDE MONONITRATE 30 MG TABLET PO SCH (13:30)
[2017-05-19] MEDS ORDERED: ALUMINUM/MAGNES/SIMETH MAX STR 30 ML UDCUP PO PRN (14:19)
[2017-05-19 14:44] VITALS: BP 132/73
[2017-05-19] MEDS ORDERED: METOPROLOL TARTRATE 25 MG TABLET PO SCH ×3 (15:00→21:00)
[2017-05-19] MEDS ORDERED: TICAGRELOR 90 MG TABLET PO SCH (21:00)
[2017-05-19] MEDS ORDERED: EZETIMIBE 10 MG TABLET PO SCH (21:00)
[2017-05-19] MEDS ORDERED: ATORVASTATIN 80 MG TABLET PO SCH (21:00)
[2017-05-19] MEDS ORDERED: INSULIN GLARGINE 100 UNIT/ML SUBCUT SCH (21:00)
[2017-05-20] MEDS ORDERED: amLODIPine 10 MG TABLET PO SCH (09:00)
[2017-05-20] MEDS ORDERED: LOSARTAN 50 MG TABLET PO SCH (09:00)
[2017-05-20] MEDS ORDERED: ASPIRIN EC 81 MG TABLET PO SCH (09:00)
== END 2017-05-19 17:55 | disposition home or self-care (01) ==
LOC: N.EDINP 08:55 → N.ED 08:55 → N.TELES 14:30
PROVIDERS: ADMIT Internal Medicine Clinical Cardiac Electrophysiology; ATTEND Internal Medicine Clinical Cardiac Electrophysiology